=== PATIENT | male | born 1970 | race Caucasian/White ===

== ENCOUNTER 2018-11-30 14:34 | Observation (INO) | payer MEDICAID ==
[~2018-11-30] VITALS: Ht 182.9 cm; Wt 70.5 kg
[2018-11-30] MEDS ORDERED: nitroGLYCERIN 0.4mg SUBLingual tab SL PRN ×2 (15:00→18:40)
[2018-11-30] MEDS ORDERED: aspirin 81mg tab.chew PO ONE (15:00)
[2018-11-30 15:08] LABS: BASOPHILS % (AUTO) 0.6 % (0-1); EOSINOPHILS # (AUTO) 0.1 X10'3 (0-0.9); EOSINOPHILS % (AUTO) 1.9 % (0-6); HEMATOCRIT 48.5 % (42.0-52.0); HEMOGLOBIN 16.5 g/dl (14.0-17.9); LYMPHOCYTES # (AUTO) 1.8 X10'3 (1.1-4.8); LYMPHOCYTES % (AUTO) 32.1 % (21-51); MEAN CORPUSCULAR HEMOGLOBIN 31.4 PG (27.0-31.0); MEAN CORPUSCULAR HGB CONC 34.1 g/dL (33.0-36.5); MEAN CORPUSCULAR VOLUME 92.2 FL (78-98); MEAN PLATELET VOLUME 7.5 FL (7.4-10.4); MONOCYTES # (AUTO) 0.5 X10'3 (0-0.9); MONOCYTES % (AUTO) 9.7 % (2-12); NEUTROPHILS # (AUTO) 3.1 X10'3 (1.8-7.7); NEUTROPHILS % (AUTO) 55.7 % (42-75); PLATELET COUNT 202 X10'3 (140-440); RED BLOOD COUNT 5.26 X10'6 (4.70-6.10); RED CELL DISTRIBUTION WIDTH 13.7 % (11.5-14.5); WHITE BLOOD COUNT 5.5 X10'3 (4.5-11.0)
[2018-11-30 15:17] LABS: ALANINE AMINOTRANSFERASE 26 U/L (12-78); ALBUMIN 3.9 G/DL (3.4-5.0); ALBUMIN/GLOBULIN RATIO 1.3 (1.1-1.5); ALKALINE PHOSPHATASE 53 IU/L (46-116); ANION GAP 7 (8-16); ASPARTATE AMINO TRANSFERASE 16 U/L (10-37); BILIRUBIN,TOTAL 0.5 MG/DL (0.1-1.0); BLOOD UREA NITROGEN 13 MG/DL (7-18); BUN/CREATININE RATIO 11.8 (5.4-32.0); CHLORIDE 110 MMOL/L (99-107); GLUCOSE 78 MG/DL (70-104); SODIUM 148 MMOL/L (135-145); TOTAL CARBON DIOXIDE 31.4 MMOL/L (24-32); eGFR 72 ML/MIN
[2018-11-30 15:18] LABS: POTASSIUM 4.1 MMOL/L (3.5-5.1)
[2018-11-30] MEDS ORDERED: normal saline 1000ml 1,000 ML IV ONE (15:55)
--- NOTE | 2018-11-30 16:15 | NUR ---
PT FEELING BETTER AFTER RECIEIVING THE SL NITRO. ABLE TO BREATH BETTER NOW. PT GIVEN FLUIDS.
[2018-11-30] MEDS ORDERED: magnesium hydroxide 30ml (MOM) UD suspension PO PRN (16:20)
[2018-11-30] MEDS ORDERED: ondansetron/PF 4mg/2ml inj IV PRN (16:20)
[2018-11-30] MEDS ORDERED: morphine 2 MG/ML inj. syringe IV PRN ×2 (16:20)
[2018-11-30] MEDS ORDERED: mag hydrox/Alum hydrox/simeth 30ml oral suspension PO PRN (16:20)
[2018-11-30] MEDS ORDERED: NO HOME MEDS (16:44)
[2018-11-30 16:47] LABS: HEMOGLOBIN A1C 5.6 % (4.5-6.2)
--- NOTE | 2018-11-30 18:21 | NUR ---
PT GIVEN HOSPITAL BED IN ROOM 3
[2018-11-30] MEDS ORDERED: aminophylline 250mg/10ml inj. IV PRN (18:40)
[2018-11-30] MEDS ORDERED: metoprolol tartrate 1mg/ml inj IV PRN (18:40)
[2018-11-30] MEDS ORDERED: regadenoson 0.4mg/5ml syringe IV ONE (18:40)
[2018-11-30] MEDS: nitroGLYCERIN 0.4mg SUBLingual tab SL PRN (18:45)
--- NOTE | 2018-11-30 18:50 | NUR ---
DR GUSMAN IN TO EVAL PT AND WRITE ORDERS FOR HIS STRESS TEST IN THE MORNING. DR GUSMAN REQUESTING TO GIVE THE PT ANOTHER NITRO DUE TO HIS CHEST PAIN COMING BACK LIKE A TIGHTNESS OR POSSIBLEY THE MORPHINE. PT HAD REFUSED THE MORPHINE EARLIER. PT AGREES TO TAKE THE NITRO. PT'S DINNER TRAY ARRIVES. AT BEDSIDE.
[2018-11-30 21:15] VITALS: BP 95/73
[2018-12-01] VITALS (11 sets, daily range): BP systolic 98–114; BP diastolic 61–82
[2018-12-01 03:21] LABS: CHOL/HDL RATIO 3.5 (0.00-4.99); CHOLESTEROL 139 MG/DL (0-200); HDL CHOLESTEROL 40 MG/DL (35-60); LDL CHOLESTEROL 95 MG/DL (50-100); TRIGLYCERIDES 54 MG/DL (20-135)
[2018-12-01 03:22] LABS: D-DIMER 0.68 MG/L FEU (0-0.50)
--- NOTE | 2018-12-01 06:51 | NUR ---
Patient in room [facility]. I have received report from SAUNDRA MARTIN and had the opportunity to ask questions and assume patient care.
--- NOTE | 2018-12-01 06:53 | NUR ---
Problems reprioritized. Patient report given, questions answered & plan of care reviewed with SAUNDRA Peterson.
[2018-12-01] MEDS ORDERED: aspirin 81mg tablet.DR PO SCH (08:00)
--- NOTE | 2018-12-01 10:15 | NUR ---
PATIENT DOWN TO [facility] FOR [facility] SCAN.
--- NOTE | 2018-12-01 12:11 | NUR ---
patient returned to room 359a. visitor at bedside.
--- NOTE | 2018-12-01 12:33 | NUR ---
patient c/o chest tightness that's "getting a little more uncomfortable now." BP 114/82 with HR of 46[address] Atwood notified. Dr. Atwood stated okay to give patient nitroglycerine with HR of 46. Will administer as ordered.
[2018-12-01] MEDS: nitroGLYCERIN 0.4mg SUBLingual tab SL PRN (12:35)
[2018-12-01] MEDS ORDERED: iohexol 350MG/ML 100ml bottle IV ONE (15:39)
[2018-12-01] MEDS ORDERED: furosemide 20 MG/2 ML vial IV ONE (16:35)
--- NOTE | 2018-12-01 16:41 | NUR ---
Malnutrition consult, patient and seen at bedside, report that his appetite is great, weight is stable, and have no concerns for malnutrition. No malnutrition at this time. Addendum: 12/01/18 at [address] Amended: Links added.
[2018-12-01] MEDS ORDERED: FURO-150 PO (18:22)
--- NOTE | 2018-12-01 18:39 | NUR ---
Problems reprioritized. Patient report given, questions answered & plan of care reviewed with SAUNDRA Mulligan.
== END 2018-12-01 20:00 | disposition home or self-care (01) ==
LOC: ER 14:34 → ED HOLD 16:17 → SUR 3N 21:25
PROVIDERS: ADMIT Internal Medicine; ATTEND Internal Medicine
DX: R07.2 Precordial pain (principal); F17.210 Nicotine dependence, cigarettes, uncomplicated; G47.30 Sleep apnea, unspecified; Z79.899 Other long term (current) drug therapy; Z82.49 Family history of ischemic heart disease and other diseases of the circulatory system; Z90.49 Acquired absence of other specified parts of digestive tract
CPT/HCPCS: 36415; 71045; 71275; 78452; 80053; 80061; 83036; 83880; 84484; 85025; 85379; 87081; 93005; 93017; 93306; 96374; 99284; A9500; G0378; J1940; J2785; Q9967